=== PATIENT | male | born 1975 | race African-American/Black ===

== ENCOUNTER 2016-08-23 21:30 | Inpatient (IN) | payer OTHER ==
--- NOTE | ~2016-08-23 | DS ---
Unit #: [id number] #: [id number] Patient: ALONSO DE LEON [id number] [address] [address] [id number] MR#: [id number] NAME: ALONSO DE LEON ROOM: 227 Age: 41 Sex: M Admission Date: 08/23/2016 : 1975 Discharge Date: 08/24/2016 Attending Physician: Grady Overton M.D. DISCHARGE SUMMARY Please note, the patient left AMA. HISTORY OF PRESENT ILLNESS/HOSPITAL COURSE The patient is a 41-year-old male, apparently has underlying history of GERD, who presented with intractable nausea, vomiting, and severe abdominal pain. He was subsequently admitted after was noted his baseline creatinine was 0.9. His admitting creatinine was 2.0 and therefore, he was admitted initially for acute kidney injury as well as intractable nausea, vomiting, and/or abdominal pain. Through routine hospital course, it was noted his urine tox screen was positive for benzodiazepines, cocaine, marijuana, as well as opioids, which were on his prescribed medication list. On day 2 of hospital stay, I mentioned to him that we will try to advance the diet from clear into regular diet and see how he progresses. If he does not progress adequately, I recommended GI consultation. He stated that he did not have any time for advancing of the diet. He felt otherwise just fine. He was not interested in any particular medications either prescribed or otherwise decided to leave on his own accord. FINAL DISCHARGE DIAGNOSES 1. After the patient left AMA, intractable nausea and vomiting. 2. Acute kidney injury. 3. Gastroesophageal reflux disease. 4. Polysubstance abuse to which the patient denies. He states he does not have a problem with cocaine. DISCHARGE MEDICATIONS Unknown. Dictated by... Medardo BriceN/jess TD: 08/25/2016 05:36 JOB #: [id number] Unit #: [id number] #: [id number] Patient: ALONSO DE LEON DISCHARGE SUMMARY Page 1 of 1 X Grady Overton MD X DISCHARGE SUMMARY
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
--- NOTE | ~2016-08-23 | EKG ---
PATIENT: ALONSO DE LEON UNIT #: [id number] Ventricular Rate: 66 BPM Atrial Rate: 468 BPM QRS Duration: 70 ms Q-T Interval: 362 ms QTC Calculation(Bezet): 379 ms P [place]: 78 degrees Calculated R [place]: 87 degrees Calculated T [place]: 110 degrees Diagnosis Line: Sinus rhythm with short NM Diagnosis Line: Moderate voltage criteria for LVH, may be normal Diagnosis Line: variant Diagnosis Line: Abnormal ECG Diagnosis Line: When compared with ECG of 07-APR-2016 19:01, Diagnosis Line: Atrial fibrillation has replaced Sinus rhythm Diagnosis Line: QT has shortened Diagnosis Line: Confirmed by ALCIDES VALDIVIA MD ([id number]) on 08/25/2016 Diagnosis Line: 9:13:11 PM INTERPRETING MD: SKIP STEPHENSON
[2016-08-23 21:24] LABS: BASOPHIL# 0.1 X10e3 (0-0.3); BASOPHIL% 0.7 % (0-2.5); DIFF IND NO; HEMOGLOBIN 16.9 gm/dL (13.0-16.0); LYMPHOCYTE# 1.6 X10e3 (1.0-3.5); LYMPHOCYTE% 8.7 % (17.0-45.0); MEAN CELL VOLUME 76.7 FL (83-96); MEAN CORPUSCULAR HEMOGLOBIN 25.4 PG (28-34); MEAN CORPUSCULAR HGB CONC 33.1 g/dL (30-36); MEAN PLATELET VOLUME 8.4 FL (6.5-11.5); MONOCYTE# 0.9 X10e3 (0-1.0); NEUTROPHIL# 15.7 X10e3 (1.5-7.1); NEUTROPHIL% 85.6 % (40-75); PLATELET COUNT 378 X10e3 (140-420); RED BLOOD COUNT 6.65 X10e (3.90-5.60); RED CELL DISTRIBUTION WIDTH 15.9 % (11.0-15.5); WHITE BLOOD COUNT 18.3 X10e3 (4.0-10.5)
[~2016-08-23 21:30] MED LIST: BENADRYL25 M1 PO; CARAFATE1 G PO; CIPRO PO; FAMOTIDINE PO; KEFLEX500 MG PO; LORTAB 5/500 TA1 TA1 PO; LORTAB 5/500 TA1 TA2 PO; METRONIDAZOLE PO; NO MEDICATIONS; PHENERGAN PO; PHENERGAN25 M1 PO; PHENERGAN25 MG PO; PREVACID PO; PRILOSEC20 MG PO; ZANTAC150 MG PO; ZOFRAN; ZOFRAN PO
[2016-08-23 21:40] LABS: ALBUMIN SERUM 5.7 g/dL (3.5-5.0); BILIRUBIN, DIRECT 0.2 mg/dL (0.0-0.2); BILIRUBIN,INDIRECT 1.5 mg/dL (0.0-0.9); BILIRUBIN,TOTAL 1.7 mg/dL (0.2-2.0); BUN/CREATININE RATIO 14.5; CALCIUM SERUM 10.5 mg/dL (8.4-10.2); GLOM FILT RATE Estimated 47.3 mL/min (>60); POTASSIUM 4.2 mmol/L (3.5-5.1); PROTEIN TOTAL SERUM 10.2 g/dL (6.0-8.3)
[2016-08-23 22:22] LABS: POC - TROPONIN <0.05 ng/mL (<=0.05)
[2016-08-24 07:12] LABS: HEMATOCRIT 43.3 % (38.0-50.0); MEAN CORPUSCULAR HEMOGLOBIN 24.6 PG (28-34); MEAN CORPUSCULAR HGB CONC 31.6 g/dL (30-36); MEAN PLATELET VOLUME 8.6 FL (6.5-11.5); RED BLOOD COUNT 5.55 X10e (3.90-5.60); RED CELL DISTRIBUTION WIDTH 15.7 % (11.0-15.5)
[2016-08-24 07:13] LABS: HEMOGLOBIN 13.7 gm/dL (13.0-16.0)
[2016-08-24 07:53] LABS: ALBUMIN SERUM 4.2 g/dL (3.5-5.0); BILIRUBIN,TOTAL 1.6 mg/dL (0.2-2.0); BUN/CREATININE RATIO 19.23; CREATININE SERUM 1.3 mg/dL (0.6-1.4); GLOM FILT RATE Estimated 79.7 mL/min (>60); POTASSIUM 3.7 mmol/L (3.5-5.1); PROTEIN TOTAL SERUM 7.5 g/dL (6.0-8.3)
[2016-08-24 08:27] LABS: URINE APPEARANCE CLOUDY; URINE BILIRUBIN NEG (NEG); URINE BLOOD NEG (NEG); URINE COLOR DK YELLOW; URINE GLUCOSE NEG (NEG); URINE KETONE TRACE (NEG); URINE LEUKOCYTE ESTERASE NEG (NEG); URINE NITRATE NEG (NEG); URINE PROTEIN 2+ (NEG); URINE SPECIFIC GRAVITY 1.029 (1.003-1.035)
[2016-08-24 08:29] LABS: URBCS1 AUWI 0-2 /[HPF] (0-2); URINE BACTERIA AUWI NEG (NEGATIVE); URINE SQUAMOUS EPITHELIAL CELL OCC /[HPF]
[2016-08-24 08:32] LABS: CULTURE INDICATED? NO
[2016-08-24 08:36] LABS: URINE SOURCE CLEAN CATCH
[2016-08-24 09:07] LABS: AMPHETAMINE NEG (NEG); BARBITURATES NEG (NEG); BENZODIAZEPINES POS (NEG); COCAINE POS (NEG); MARIJUANA POS (NEG); OPIATES POS (NEG); TRICYCLIC ANTIDEPRESSANTS NEG (NEG); U METHADONE NEG (NEG)
== END 2016-08-24 13:36 | disposition left against medical advice (07) | DRG 684 ==
LOC: SED 21:30 → C2A 22:52
PROVIDERS: Emergency Medicine; Family Medicine; Internal Medicine
DX: N17.9 Acute kidney failure, unspecified (principal); F17.200 Nicotine dependence, unspecified, uncomplicated; K21.9 Gastro-esophageal reflux disease without esophagitis; F19.10 Other psychoactive substance abuse, uncomplicated
CPT/HCPCS: 36415; 80048; 80053; 80076; 80307; 81003; 82150; 82550; 82553; 83690; 83874; 84484; 85025; 85027; 93005; 96361; 96374; 96375; 99285; J2405; J2550; J2765